=== PATIENT | male | born 1975 | race Caucasian/White ===

== ENCOUNTER 2018-11-17 22:18 | Emergency (ER) | payer SELFPAY ==
[~2018-11-17] VITALS: Ht 185.4 cm; Wt 77.1 kg
== END 2018-11-18 01:20 | disposition home or self-care (01) ==
LOC: ER 22:18
DX: M25.571 Pain in right ankle and joints of right foot (principal); R60.9 Edema, unspecified; S91.001S Unspecified open wound, right ankle, sequela; V29.9XXS Motorcycle rider (driver) (passenger) injured in unspecified traffic accident, sequela; F17.210 Nicotine dependence, cigarettes, uncomplicated
CPT/HCPCS: 99282